=== PATIENT | female | born 1970 | race Caucasian/White ===

== ENCOUNTER 2016-10-19 20:01 | Emergency (ER) | payer BC ==
[~2016-10-19 20:01] MED LIST: Acetaminophen/HYDROcodone 325-5 MG Tab PO ONE; Ondansetron 4 MG Tab.DIS PO ONE
[2016-10-19] MEDS ORDERED: Ondansetron 4 MG/2 ML SDV IVPUSH STA ×2 (20:14→21:33)
[2016-10-19] MEDS ORDERED: LORazepam 2 MG/ML Syringe IVPUSH ONE (20:14)
[2016-10-19] MEDS ORDERED: Morphine 4 MG/ML Syringe IVPUSH ONE ×2 (20:14→21:33)
--- NOTE | 2016-10-19 20:31 | EDM.PDOC ---
ED HPI GENERAL MEDICAL PROBLEM - General Chief Complaint: General Stated Complaint: BACK PAIN Time Seen by Provider: 10/19/16 20:04 Source of Information: Reports: Patient History Limitations: Reports: No limitations - History of Present Illness INITIAL COMMENTS - FREE TEXT/NARRATIVE: This patient is a 46 year old female that presents to the ER. Patient reports that she just got off work and was driving at 6pm when she started having tightness between her shoulder blades. Patient reports that her tightness began to radiate to the neck, bilateral upper arms, and into her chest. Patient reports she developed nausea and shortness of breath and dizziness with it. Patient reports the tightness waxes and wanes, never goes away. She reports at the max, the tightness is a level of 7, now is level of 5. The patient reports she stopped smoking about 14 years ago. She reports that she has brothers and father who has heart problems. She is a diabetic. Patient looks anxious.Patient denies headache, v, d, f, abd pain, urinary/bowel changes, rash, airway closure , tongue swelling. Onset: today Onset Date: 10/19/16 Onset Time: 18:00 Location: Reports: neck, chest, back, upper extremity, left, upper extremity, right Quality: Reports: Other ("Tight") Severity: moderate Improves with: Reports: None Worsens with: Reports: None Associated Symptoms: Reports: chest pain, nausea/vomiting, shortness of breath. Denies: confusion, cough, cough w sputum, diaphoresis, fever/chills, headaches , loss of appetite, malaise, rash, seizure, syncope, weakness - Related Data Allergies Allergy/AdvReac Type Severity Reaction Status Date / Time red dye Allergy Intermediate Hives Verified 10/19/16 20:19 Penicillins Allergy Cannot Verified 10/19/16 20:19 Remember Home Meds: Home Meds . [No Known Home Meds] 08/10/15 [History] Past Medical History Endocrine/Metabolic History: Reports: Diabetes, type II Social & Family History - Family History Cardiac: Reports: CAD, Hypertension Endocrine/Metabolic: Reports: Diabetes, type II - Tobacco Use Smoking Status *Q: Never Smoker - Recreational Drug Use Recreational Drug Use: No ED ROS GENERAL - Review of Systems Review Of Systems: See Below Constitutional: Reports: no symptoms HEENT: Reports: No symptoms Respiratory: Reports: Shortness of Breath Cardiovascular: Reports: Chest pain, Lightheadedness Endocrine: Reports: no symptoms GI/Abdominal: Reports: Nausea : Reports: no symptoms Musculoskeletal: Reports: neck pain, arm pain (bilateral), back pain Skin: Reports: no symptoms Neurological: Reports: Dizziness Psychiatric: Reports: No symptoms Hematologic/Lymphatic: Reports: no symptoms Immunologic: Reports: no symptoms ED EXAM, GENERAL - Physical Exam Exam: See Below Exam Limited By: No limitations General Appearance: alert, WD/WN, no apparent distress Eye Exam: bilateral eye: normal inspection, PERRL Ears: normal external exam, normal canal, hearing grossly normal, normal TMs Ear Exam: bilateral ear: auricle normal, canal normal, TM normal Nose: normal inspection, normal mucosa, no blood Throat/Mouth: Normal inspection, Normal lips, Normal teeth, Normal gums, Normal oropharynx, Normal voice, No airway compromise Head: atraumatic, normocephalic Neck: normal inspection, supple, non-tender, full range of motion Respiratory/Chest: no respiratory distress, lungs clear, normal breath sounds, no accessory muscle use Cardiovascular: normal peripheral pulses, regular rate, rhythm, no edema, no gallop, no JVD, no murmur, no rub Peripheral Pulses: 2+: radial (L), radial (R), posterior tibial (L), posterior tibial (R), dorsalis pedis (L), dorsalis pedis (R) GI/Abdominal: soft, non tender Back Exam: normal inspection, full range of motion. No: CVA tenderness (L), CVA tenderness (R), decreased range of motion, muscle spasm, paraspinal tenderness, vertebral tenderness Extremities: normal inspection, normal range of motion, non-tender, no pedal edema, normal capillary refill Neurological: alert, oriented, CN II-XII intact, normal cognition, no motor/ sensory deficits Psychiatric: anxious Skin Exam: Warm, Dry, Intact, Normal color, No rash Lymphatic: no adenopathy EKG INTERPRETATION EKG Date: 10/19/16 Time: 20:13 Rhythm: NSR Rate (beats/min): 87 [place]: normal P-wave: present QRS: normal ST-T: normal QT: normal Comparison: NA - no prior EKG Course - Vital Signs Last Recorded V/S: Last Vital Signs Temp 97.9 F 10/19/16 20:05 Pulse 91 10/19/16 20:05 Resp 18 10/19/16 20:05 BP 132/76 10/19/16 20:05 Pulse Ox 97 10/19/16 20:05 - Orders/Labs/Meds Orders: Active Orders 24 hr Category Date Time Status Chest 2V [CR] Stat Exams 10/19/16 20:12 Taken Acetaminophen/HYDROcodone [Take Home: Acetaminophen/ Med 10/19/16 22:51 Once HYDROcod, 2 Tab Pack] 3 packet PO ONETIME ONE Ondansetron [Take Home: Ondansetron ODT 4 MG, 2 Tab Med 10/19/16 22:51 Once Pack] 3 packet PO ONETIME ONE Labs: Laboratory Tests 10/19/16 10/19/16 10/19/16 Range/Units 20:12 20:12 20:12 WBC 8.4 (5.0-10.0) 10^3/uL RBC 4.43 (4.00-5.50) 10^6/uL Hgb 13.5 (12.0-16.0) g/dL Hct 40.5 (37.0-47.0) % MCV 91.4 (82.0-94.0) fL MCH 30.5 (27.0-32.0) pg MCHC 33.3 (33.0-38.0) g/dL RDW Coeff of [place] 12.9 (11.0-15.0) % Plt Count 213 (150-400) 10^3/uL Neut % (Auto) 58.4 (35-85) % Lymph % (Auto) 33.4 (10-55) % [place] % (Auto) 6.7 (0-16) % Eos % (Auto) 1.3 (0-5) % Baso % (Auto) 0.2 (0-3) % Neut # (Auto) 4.92 (1.80-7.00) 10^3/uL Lymph # (Auto) 2.81 (1.00-4.80) 10^3/uL [place] # (Auto) 0.56 (0.00-0.80) 10^3/uL Eos # (Auto) 0.11 (0.00-0.45) 10^3/uL Baso # (Auto) 0.02 10^3/uL D-Dimer, Quantitative (0.00-0.50) Sodium 137 (136-145) mEq/L Potassium 3.7 (3.5-5.0) mEq/L Chloride 102 (98-106) mEq/L Carbon Dioxide 25 (21-32) mmol/L BUN 15 (7-18) mg/dL Creatinine 0.9 (0.6-1.0) mg/dL Est Cr Clr Drug Dosing TNP Estimated GFR (MDRD) > 60 (>=60) mL/min Glucose 200 H (75-99) mg/dL Calcium 8.4 (8.4-10.1) mg/dL Total Bilirubin 0.5 (0.0-1.0) mg/dL AST 18 (15-37) U/L ALT 31 (12-78) U/L Alkaline Phosphatase 88 (46-116) U/L Creatine Kinase 77 (21-215) U/L Troponin I < 0.017 (0.00-0.06) ng/mL C-Reactive Protein < 0.2 L (0.2-0.8) mg/dL Total Protein 7.3 (6.4-8.2) g/dL Albumin 3.7 (3.4-5.0) g/dL HCG, Qual Negative 10/19/16 10/19/16 Range/Units 20:18 22:10 WBC (5.0-10.0) 10^3/uL RBC (4.00-5.50) 10^6/uL Hgb (12.0-16.0) g/dL Hct (37.0-47.0) % MCV (82.0-94.0) fL MCH (27.0-32.0) pg MCHC (33.0-38.0) g/dL RDW Coeff of [place] (11.0-15.0) % Plt Count (150-400) 10^3/uL Neut % (Auto) (35-85) % Lymph % (Auto) (10-55) % [place] % (Auto) (0-16) % Eos % (Auto) (0-5) % Baso % (Auto) (0-3) % Neut # (Auto) (1.80-7.00) 10^3/uL Lymph # (Auto) (1.00-4.80) 10^3/uL [place] # (Auto) (0.00-0.80) 10^3/uL Eos # (Auto) (0.00-0.45) 10^3/uL Baso # (Auto) 10^3/uL D-Dimer, Quantitative 0.27 (0.00-0.50) Sodium (136-145) mEq/L Potassium (3.5-5.0) mEq/L Chloride (98-106) mEq/L Carbon Dioxide (21-32) mmol/L BUN (7-18) mg/dL Creatinine (0.6-1.0) mg/dL Est Cr Clr Drug Dosing Estimated GFR (MDRD) (>=60) mL/min Glucose (75-99) mg/dL Calcium (8.4-10.1) mg/dL Total Bilirubin (0.0-1.0) mg/dL AST (15-37) U/L ALT (12-78) U/L Alkaline Phosphatase (46-116) U/L Creatine Kinase (21-215) U/L Troponin I < 0.017 (0.00-0.06) ng/mL C-Reactive Protein (0.2-0.8) mg/dL Total Protein (6.4-8.2) g/dL Albumin (3.4-5.0) g/dL HCG, Qual Meds: Medications Discontinued Medications Generic Name Dose Route Start Last Admin Trade Name Freq PRN Reason Stop Dose Admin Cyclobenzaprine HCl 10 mg 10/19/16 21:34 10/19/16 21:48 Flexeril PO 10/19/16 21:35 10 mg ONETIME ONE Administration Lorazepam 1 mg 10/19/16 20:14 10/19/16 20:37 Ativan IVPUSH 10/19/16 20:15 1 mg ONETIME ONE Administration Morphine Sulfate 4 mg 10/19/16 20:14 10/19/16 20:37 Morphine IVPUSH 10/19/16 20:15 4 mg ONETIME ONE Administration Morphine Sulfate 4 mg 10/19/16 21:33 10/19/16 21:48 Morphine IVPUSH 10/19/16 21:34 4 mg ONETIME ONE Administration Ondansetron HCl 4 mg 10/19/16 20:14 10/19/16 20:37 Zofran IVPUSH 10/19/16 20:15 4 mg NOW STA Administration Ondansetron HCl 4 mg 10/19/16 21:33 10/19/16 21:48 Zofran IVPUSH 10/19/16 21:34 4 mg NOW STA Administration - Radiology Interpretation Free Text/Narrative:: CXR: No infiltrates, no cardiopulmonary edema, no cardiomegaly. - Re-Assessments/Exams Free Text/Narrative Re-Assessment/Exam: 10/19/16 21:24 Patient reports her pain and nausea are nearly completely resolved. I am awaiting a second troponin draw. So far all labs, ekg, and CXR are unremarkable. Departure - Departure Time of Disposition: 22:52 Disposition: Home, Self-Care 01 Condition: good Clinical Impression: Atypical chest pain Instructions: Nonspecific Chest Pain, [id number] Referrals: Provider,Unknown [Primary Care Provider] - Forms: ED Department Discharge Additional Instructions: Followup with your primary care provider Return to the ER for worsening of condition or any emergent concerns Increase fluids, Rest, Decrease stress. Zofran 4mg 1 pill as needed every 4-6 hours for nausea #6 take home [place] 5/325mg 1-2 pills every 4-6 hours as needed for pain #6 take home - My Orders Last 24 Hours: My Active Orders 10/19/16 20:12 Chest 2V [CR] Stat 10/19/16 22:51 Acetaminophen/HYDROcodone [Take Home: Acetaminophen/HYDROcod, 2 Tab Pack] 3 packet PO ONETIME ONE Ondansetron [Take Home: Ondansetron ODT 4 MG, 2 Tab Pack] 3 packet PO ONETIME ONE - Assessment/Plan Last 24 Hours: My Active Orders 10/19/16 20:12 Chest 2V [CR] Stat 10/19/16 22:51 Acetaminophen/HYDROcodone [Take Home: Acetaminophen/HYDROcod, 2 Tab Pack] 3 packet PO ONETIME ONE Ondansetron [Take Home: Ondansetron ODT 4 MG, 2 Tab Pack] 3 packet PO ONETIME ONE Plan: PLEASE SEE RN NOTE FOR PFSH.
[2016-10-19 20:45] LABS: CHLORIDE,CL 102 mEq/L (98-106); SODIUM,NA 137 mEq/L (136-145)
[2016-10-19] MEDS ORDERED: Cyclobenzaprine 10 MG Tab PO ONE (21:34)
[2016-10-19 22:12] VITALS: BP 132/76
[2016-10-19] MEDS ORDERED: Take Home: Acetaminophen/HYDROcodone 325-5 MG, 2 Tab Pack PO ONE (22:51)
[2016-10-19] MEDS ORDERED: Take Home: Ondansetron 4 MG Tab.DIS, 2 Tab Pack PO ONE (22:51)
== END 2016-10-19 23:05 | disposition home or self-care (01) ==
LOC: CC.ED 20:01
DX: R11.0 Nausea (principal); R07.89 Other chest pain; E11.9 Type 2 diabetes mellitus without complications; Z82.49 Family history of ischemic heart disease and other diseases of the circulatory system; Z88.0 Allergy status to penicillin; Z91.048 Other nonmedicinal substance allergy status
CPT/HCPCS: 36415; 71020; 80053; 82550; 84484; 84703; 85025; 85379; 86140; 93005; 96374; 96375; 99285; A9270; J2060; J2270; J2405; 96376

== ENCOUNTER 2018-08-16 19:00 | Emergency (ER) | payer BC ==
[2018-08-16 19:05] VITALS: BP 147/98
[2018-08-16] MEDS ORDERED: Alum Hydrox/Mag Hydrox/Simeth 30 ML, Lidocaine 2% 15 ML PO ONE ×2 (19:39)
[2018-08-16 19:40] LABS: CHLORIDE,CL 100 mEq/L (98-106); SODIUM,NA 137 mEq/L (136-145)
[2018-08-16] MEDS ORDERED: Ondansetron 4 MG/2 ML SDV IVPUSH ONE (19:59)
[2018-08-16] MEDS ORDERED: fentaNYL 100 MCG/2 ML SDV IVPUSH PRN (20:13)
--- NOTE | 2018-08-16 20:13 | EDM.PDOC ---
ED HPI GENERAL MEDICAL PROBLEM - General Chief Complaint: Abdominal Pain Stated Complaint: ABDOMINAL PAIN/BACK PAIN Time Seen by Provider: 08/16/18 19:30 Source of Information: Reports: Patient History Limitations: Reports: No Limitations - History of Present Illness INITIAL COMMENTS - FREE TEXT/NARRATIVE: Patient presents to ER with complaints of abdominal pain. States started about 0830 this am after eating toast and sausage. Has continued to have intermittent pain that starts in the upper quadrants and radiates diffusely throughout and to her back. She had pain similar to this prior to having her gallbladder surgery many years ago. She has had a BM and has been passing gas and belching through the day but it hasn't relieved the pain. She denies any nausea or vomiting. Has had intermittent chills. No blood in her stools. No previous history of PUD. Onset: Today, Sudden Duration: Hour(s):, Getting Worse Location: Reports: Abdomen Quality: Reports: Burning, Sharp Severity: Moderate Improves with: Reports: Rest Worsens with: Reports: None Associated Symptoms: Reports: Fever/Chills, Nausea/Vomiting. Denies: Chest Pain , Cough, Loss of Appetite, Shortness of Breath Back Pain Score (Numeric/FACES): 6 - Related Data Allergies Allergy/AdvReac Type Severity Reaction Status Date / Time red dye Allergy Intermediate Hives Verified 08/16/18 19:56 ibuprofen Allergy Swelling Verified 08/16/18 19:02 Penicillins Allergy Cannot Verified 08/16/18 19:56 Remember Home Meds: Home Meds . [No Known Home Meds] 08/10/15 [History] Past Medical History Endocrine/Metabolic History: Reports: Diabetes, Type II - Past Surgical History HEENT Surgical History: Reports: Adenoidectomy, Tonsillectomy GI Surgical History: Reports: Appendectomy, Cholecystectomy Female Surgical History: Reports: Section, Endometrial Ablation, Tubal Ligation Social & Family History - Family History Family Medical History: Noncontributory Cardiac: Reports: CAD, Hypertension Endocrine/Metabolic: Reports: Diabetes, type II - Tobacco Use Smoking Status *Q: Former Smoker Used Tobacco, but Quit: Yes Month/Year Tobacco Last Used: 2004 - Caffeine Use Caffeine Use: Reports: Soda - Recreational Drug Use Recreational Drug Use: No ED ROS GENERAL - Review of Systems Review Of Systems: See Below Constitutional: Reports: Chills, Malaise, Decreased Appetite. Denies: Fever, Weakness HEENT: Reports: No Symptoms Respiratory: Denies: Shortness of Breath, Cough Cardiovascular: Denies: Chest Pain, Edema, Lightheadedness Endocrine: Denies: Fatigue GI/Abdominal: Reports: Abdominal Pain, Nausea. Denies: Constipation, Diarrhea, Vomiting : Reports: No Symptoms Musculoskeletal: Reports: No Symptoms Skin: Reports: No Symptoms Neurological: Reports: No Symptoms ED EXAM, GI/ABD - Physical Exam Exam: See Below Exam Limited By: No Limitations General Appearance: Alert, WD/WN, No Apparent Distress Ears: Normal External Exam, Normal TMs Nose: Normal Inspection, Normal Mucosa, No Blood Throat/Mouth: Normal Inspection, Normal Oropharynx Head: Normocephalic Neck: Normal Inspection, Supple, Non-Tender Respiratory/Chest: No Respiratory Distress, Lungs Clear, Normal Breath Sounds Cardiovascular: Regular Rate, Rhythm GI/Abdominal Exam: Normal Bowel Sounds, Soft, Non-Tender Extremities: Normal Inspection, Normal Capillary Refill Neurological: Alert, Oriented Skin Exam: Warm, Dry Course - Vital Signs Last Recorded V/S: Last Vital Signs Temp 99.5 F 08/16/18 19:02 Pulse 89 08/16/18 19:02 Resp 18 08/16/18 19:02 BP 147/98 H 08/16/18 19:02 Pulse Ox 100 08/16/18 19:02 - Orders/Labs/Meds Orders: Active Orders 24 hr Category Date Time Status Abdomen 2V AP Flat Upright [CR] Stat Exams 08/16/18 19:10 Taken Abdomen Pelvis w Cont [CT] Routine Exams 08/16/18 Taken fentaNYL [Sublimaze] Med 08/16/18 20:13 Active 25 mcg IVPUSH Q6H PRN Medication Orders Fentanyl (Sublimaze) 25 mcg IVPUSH Q6H PRN PRN Reason: Pain Last Admin: 08/16/18 20:18 Dose: 25 mcg Labs: Laboratory Tests 08/16/18 08/16/18 08/16/18 Range/Units 19:15 19:20 19:20 WBC 9.7 (5.0-10.0) 10^3/uL RBC 4.92 (4.00-5.50) 10^6/uL Hgb 14.6 (12.0-16.0) g/dL Hct 44.0 (37.0-47.0) % MCV 89.4 (82.0-94.0) fL MCH 29.7 (27.0-32.0) pg MCHC 33.2 (33.0-38.0) g/dL RDW Coeff of Kaylyn 12.8 (11.0-15.0) % Plt Count 222 (150-400) 10^3/uL Neut % (Auto) 56.8 (35-85) % Lymph % (Auto) 35.6 (10-55) % [place] % (Auto) 6.1 (0-16) % Eos % (Auto) 1.3 (0-5) % Baso % (Auto) 0.2 (0-3) % Neut # (Auto) 5.48 (1.80-7.00) 10^3/uL Lymph # (Auto) 3.44 (1.00-4.80) 10^3/uL [place] # (Auto) 0.59 (0.00-0.80) 10^3/uL Eos # (Auto) 0.13 (0.00-0.45) 10^3/uL Baso # (Auto) 0.02 10^3/uL Sodium 137 (136-145) mEq/L Potassium 4.0 (3.5-5.0) mEq/L Chloride 100 (98-106) mEq/L Carbon Dioxide 25 (21-32) mmol/L BUN 14 (7-18) mg/dL Creatinine 0.7 (0.6-1.0) mg/dL Est Cr Clr Drug Dosing 72.13 mL/min Estimated GFR (MDRD) > 60 (>=60) mL/min Glucose 199 H (75-99) mg/dL Calcium 8.8 (8.4-10.1) mg/dL Total Bilirubin 0.4 (0.0-1.0) mg/dL AST 15 (15-37) U/L ALT 34 (12-78) U/L Alkaline Phosphatase 104 (46-116) U/L C-Reactive Protein < 0.2 L (0.2-0.8) mg/dL Total Protein 7.5 (6.4-8.2) g/dL Albumin 3.6 (3.4-5.0) g/dL Amylase 57 (25-115) U/L HCG, Qual Urine Color Yellow (YELLOW) Urine Appearance Clear (CLEAR) Urine pH 6.0 (4.5-8.0) Ur Specific [place] 1.020 (1.003-1.020) Urine Protein Negative (NEGATIVE) mg/dL Urine Glucose (UA) 100 H (NEGATIVE) mg/dL Urine Ketones Negative (NEGATIVE) mg/dL Urine Occult Blood Trace-intact H (NEGATIVE) Urine Nitrite Negative (NEGATIVE) Urine Bilirubin Negative (NEGATIVE) Urine Urobilinogen 0.2 (0.2-1.0) EU/dL Ur Leukocyte Esterase Negative (NEGATIVE) Urine RBC Not seen (0-5) /HPF Urine WBC Not seen (0-5) /HPF Ur Epithelial Cells Few H (NOT SEEN) /HPF 08/16/18 Range/Units 19:20 WBC (5.0-10.0) 10^3/uL RBC (4.00-5.50) 10^6/uL Hgb (12.0-16.0) g/dL Hct (37.0-47.0) % MCV (82.0-94.0) fL MCH (27.0-32.0) pg MCHC (33.0-38.0) g/dL RDW Coeff of Kaylyn (11.0-15.0) % Plt Count (150-400) 10^3/uL Neut % (Auto) (35-85) % Lymph % (Auto) (10-55) % [place] % (Auto) (0-16) % Eos % (Auto) (0-5) % Baso % (Auto) (0-3) % Neut # (Auto) (1.80-7.00) 10^3/uL Lymph # (Auto) (1.00-4.80) 10^3/uL [place] # (Auto) (0.00-0.80) 10^3/uL Eos # (Auto) (0.00-0.45) 10^3/uL Baso # (Auto) 10^3/uL Sodium (136-145) mEq/L Potassium (3.5-5.0) mEq/L Chloride (98-106) mEq/L Carbon Dioxide (21-32) mmol/L BUN (7-18) mg/dL Creatinine (0.6-1.0) mg/dL Est Cr Clr Drug Dosing mL/min Estimated GFR (MDRD) (>=60) mL/min Glucose (75-99) mg/dL Calcium (8.4-10.1) mg/dL Total Bilirubin (0.0-1.0) mg/dL AST (15-37) U/L ALT (12-78) U/L Alkaline Phosphatase (46-116) U/L C-Reactive Protein (0.2-0.8) mg/dL Total Protein (6.4-8.2) g/dL Albumin (3.4-5.0) g/dL Amylase (25-115) U/L HCG, Qual Negative Urine Color (YELLOW) Urine Appearance (CLEAR) Urine pH (4.5-8.0) Ur Specific [place] (1.003-1.020) Urine Protein (NEGATIVE) mg/dL Urine Glucose (UA) (NEGATIVE) mg/dL Urine Ketones (NEGATIVE) mg/dL Urine Occult Blood (NEGATIVE) Urine Nitrite (NEGATIVE) Urine Bilirubin (NEGATIVE) Urine Urobilinogen (0.2-1.0) EU/dL Ur Leukocyte Esterase (NEGATIVE) Urine RBC (0-5) /HPF Urine WBC (0-5) /HPF Ur Epithelial Cells (NOT SEEN) /HPF Meds: Medications Generic Name Dose Route Start Last Admin Trade Name Freq PRN Reason Stop Dose Admin Fentanyl 25 mcg 08/16/18 20:13 08/16/18 20:18 Sublimaze IVPUSH 25 mcg Q6H PRN Administration Pain Discontinued Medications Generic Name Dose Route Start Last Admin Trade Name Freq PRN Reason Stop Dose Admin Hydrocodone Bitart/Acetaminophen 2 packet 08/16/18 20:58 Take Home: Acetaminophen/Hydrocod, 2 Tab Pack PO 08/16/18 20:59 ONETIME ONE Al Hydroxide/Mg Hydroxide 30 0 ml 08/16/18 19:39 08/16/18 19:49 ml/ Lidocaine HCl 15 ml PO 08/16/18 19:40 30 ml ONETIME ONE Administration Ondansetron HCl 4 mg 08/16/18 19:59 08/16/18 20:05 Zofran IVPUSH 08/16/18 20:00 4 mg ONETIME ONE Administration - Re-Assessments/Exams Free Text/Narrative Re-Assessment/Exam: 08/16/18 Given GI cocktail, no relief of the pain. Did get nauseated as a result. Zofran IV given 2004- Labs are all negative. Flat and upright does show stool in the right colon, no obstruction. CT scan of the abdomen with IV contrast done. 08/16/18 21:00 CT scan shows probable fibroids in the uterus, ovarian cyst. No other acute findings. Results discussed with patient. Departure - Departure Time of Disposition: 21:01 Disposition: Home, Self-Care 01 Condition: Fair Clinical Impression: Abdominal pain, Ovarian cyst - Discharge Information *PRESCRIPTION DRUG MONITORING PROGRAM REVIEWED*: No *COPY OF PRESCRIPTION DRUG MONITORING REPORT IN PATIENT SEBAS: No Forms: ED Department Discharge Additional Instructions: 1. Push fluids 2. Obtain pelvic ultrasound 3. Hydrocodone 1-2 tabs every 6 hours as needed for pain 4. Follow up with [facility] for results/persisting pain. - My Orders Last 24 Hours: My Active Orders 08/16/18 Abdomen Pelvis w Cont [CT] Routine 08/16/18 19:10 Abdomen 2V AP Flat Upright [CR] Stat 08/16/18 20:13 fentaNYL [Sublimaze] 25 mcg IVPUSH Q6H PRN - Assessment/Plan Last 24 Hours: My Active Orders 08/16/18 Abdomen Pelvis w Cont [CT] Routine 08/16/18 19:10 Abdomen 2V AP Flat Upright [CR] Stat 08/16/18 20:13 fentaNYL [Sublimaze] 25 mcg IVPUSH Q6H PRN
[2018-08-16] MEDS ORDERED: Take Home: Acetaminophen/HYDROcodone 325-5 MG, 2 Tab Pack PO ONE (20:58)
== END 2018-08-16 21:13 | disposition home or self-care (01) ==
LOC: CC.ED 19:00
DX: N83.209 Unspecified ovarian cyst, unspecified side (principal); E11.9 Type 2 diabetes mellitus without complications; Z87.891 Personal history of nicotine dependence; Z88.8 Allergy status to other drugs, medicaments and biological substances; Z88.0 Allergy status to penicillin
CPT/HCPCS: 36415; 74019; 74177; 80053; 81001; 82150; 84703; 85025; 86140; 96374; 96375; 99284; A9270-GY; J2405; J3010; Q9967

== ENCOUNTER 2019-07-12 22:34 | Inpatient (IN) | payer BC ==
[2019-07-12] MEDS ORDERED: fentaNYL 100 MCG/2 ML SDV IM ONE (22:56)
[2019-07-12] MEDS ORDERED: fentaNYL 100 MCG/2 ML SDV IVPUSH ONE ×2 (23:00→23:33)
--- NOTE | 2019-07-12 23:01 | EDM.PDOC ---
ED HPI GENERAL MEDICAL PROBLEM - General Chief Complaint: Abdominal Pain Stated Complaint: abdominal pain Time Seen by Provider: 07/12/19 22:45 Source of Information: Reports: Patient History Limitations: Reports: No Limitations - History of Present Illness INITIAL COMMENTS - FREE TEXT/NARRATIVE: pt presents with sudden onset of severe abdominal pain that goes across her entire abdomen and radiates into her back. She ate supper normally and felt well then about 7 pm she started having abdominal pain with pressure and vomited about 9 times in the next 3 hours. She states when she vomits it will take away some of the pressure and then it builds up and she would vomit again. No diarrhea or fever with it. No one else in house became ill and they all ate same food. She has had cholecystectomy and appendectomy in the past. Has not had exposure to ill in the past 24 hours. She continues to state that it feels like sharp contractions that will shoot into her low to mid back. Onset: Sudden Onset Date: 07/12/19 Onset Time: 19:00 Location: Reports: Abdomen, Generalized Quality: Reports: Sharp, Stabbing Severity: Severe Associated Symptoms: Reports: Nausea/Vomiting. Denies: Fever/Chills Abdominal Pain Score (Numeric/FACES): 8 - Related Data Allergies Allergy/AdvReac Type Severity Reaction Status Date / Time red dye Allergy Intermediate Hives Verified 07/12/19 22:35 ibuprofen Allergy Swelling Verified 07/12/19 22:35 Penicillins Allergy Cannot Verified 07/12/19 22:35 Remember Home Meds: Home Meds . [No Known Home Meds] 08/10/15 [History] Past Medical History Endocrine/Metabolic History: Reports: Diabetes, Type II - Past Surgical History HEENT Surgical History: Reports: Adenoidectomy, Tonsillectomy GI Surgical History: Reports: Appendectomy, Cholecystectomy Female Surgical History: Reports: Section, Endometrial Ablation, Tubal Ligation Social & Family History - Family History Family Medical History: Noncontributory Cardiac: Reports: CAD, Hypertension Endocrine/Metabolic: Reports: Diabetes, type II - Caffeine Use Caffeine Use: Reports: Soda ED ROS GENERAL - Review of Systems Review Of Systems: See Below Constitutional: Denies: Fever, Chills HEENT: Reports: No Symptoms Respiratory: Reports: No Symptoms Cardiovascular: Reports: No Symptoms GI/Abdominal: Reports: Abdominal Pain, Nausea, Vomiting. Denies: Constipation, Diarrhea, Melena : Reports: No Symptoms Musculoskeletal: Reports: Back Pain Skin: Reports: No Symptoms Neurological: Reports: No Symptoms ED EXAM, GI/ABD - Physical Exam Exam: See Below Exam Limited By: No Limitations General Appearance: Alert, WD/WN, Moderate Distress Ears: Normal External Exam, Normal Canal, Normal TMs Head: Atraumatic, Normocephalic Neck: Normal Inspection, Supple, Non-Tender, Full Range of Motion Respiratory/Chest: No Respiratory Distress, Lungs Clear, Normal Breath Sounds Cardiovascular: Regular Rate, Rhythm, No Edema GI/Abdominal Exam: Soft, Other (bowel sounds are hypoactive to none. Abdomen is tender across the entire abdomen with light palpation.) Back Exam: Normal Inspection, Other (back radiates into the mid back.) Extremities: No Pedal Edema Neurological: Alert, Oriented Skin Exam: Warm, Dry, Intact Course - Vital Signs Last Recorded V/S: Last Vital Signs Temp 98.8 F 07/12/19 22:35 Pulse 97 07/12/19 22:35 Resp 16 07/12/19 22:35 BP 164/102 H 07/12/19 22:35 Pulse Ox 100 07/12/19 22:35 - Orders/Labs/Meds Orders: Active Orders 24 hr Category Date Time Status Abdomen 2V AP Flat Upright [CR] Urgent Exams 07/12/19 22:51 Ordered C-REACTIVE PROTEIN [CHEM] Stat Lab 07/12/19 22:40 Received COMPREHENSIVE METABOLIC PN,CMP [CHEM] Stat Lab 07/12/19 22:40 Received UA W/MICROSCOPIC [URIN] Stat Lab 07/12/19 22:40 Results Labs: Laboratory Tests 07/12/19 07/12/19 Range/Units 22:40 22:40 WBC 19.6 H (5.0-10.0) 10^3/uL RBC 4.92 (4.00-5.50) 10^6/uL Hgb 15.1 (12.0-16.0) g/dL Hct 45.1 (37.0-47.0) % MCV 91.7 (82.0-94.0) fL MCH 30.7 (27.0-32.0) pg MCHC 33.5 (33.0-38.0) g/dL RDW Coeff of [place] 13.4 (11.0-15.0) % Plt Count 274 (150-400) 10^3/uL Neut % (Auto) 85.8 H (35-85) % Lymph % (Auto) 7.8 L (10-55) % [place] % (Auto) 5.9 (0-16) % Eos % (Auto) 0.4 (0-5) % Baso % (Auto) 0.1 (0-3) % Neut # (Auto) 16.84 H (1.80-7.00) 10^3/uL Lymph # (Auto) 1.53 (1.00-4.80) 10^3/uL [place] # (Auto) 1.16 H (0.00-0.80) 10^3/uL Eos # (Auto) 0.08 (0.00-0.45) 10^3/uL Baso # (Auto) 0.02 10^3/uL Urine Color Yellow (YELLOW) Urine Appearance Clear (CLEAR) Urine pH 6.0 (4.5-8.0) Ur Specific [place] 1.025 H (1.003-1.020) Urine Protein 100 H (NEGATIVE) mg/dL Urine Glucose (UA) Negative (NEGATIVE) mg/dL Urine Ketones Trace H (NEGATIVE) mg/dL Urine Occult Blood Negative (NEGATIVE) Urine Nitrite Negative (NEGATIVE) Urine Bilirubin Negative (NEGATIVE) Urine Urobilinogen 0.2 (0.2-1.0) EU/dL Ur Leukocyte Esterase Negative (NEGATIVE) - Re-Assessments/Exams Free Text/Narrative Re-Assessment/Exam: 07/12/19 23:[address] with radiologist and he states that there is bowel distention but technically it doesn't meet the criteria for bowel obstruction. He states that she has enterocolitis. Will admit and make NPO with pain meds and pantoprazole. Will insert NG if vomiting continues. Discussed with pt and and the both agree with admit. Departure - Departure Time of Disposition: 23:52 Disposition: Admitted As Inpatient 67 Condition: Fair Clinical Impression: Enterocolitis Vomiting Qualifiers: Vomiting type: unspecified Vomiting Intractability: intractable Nausea presence : with nausea Qualified Code(s): R11.2 - Nausea with vomiting, unspecified - Discharge Information *PRESCRIPTION DRUG MONITORING PROGRAM REVIEWED*: Not Applicable *COPY OF PRESCRIPTION DRUG MONITORING REPORT IN PATIENT SEBSA: Not Applicable Sepsis Event Note - Evaluation Sepsis Screening Result: No Definite Risk - Focused Exam Vital Signs: Vital Signs Temp Pulse Resp BP Pulse Ox 07/12/19 22:35 98.8 F 97 16 164/102 H 100 Date Exam was Performed: 07/12/19 Time Exam was Performed: 22:55 - Problem List & Annotations (1) Enterocolitis SNOMED Code(s): 03413723 Code(s): K52.9 - NONINFECTIVE GASTROENTERITIS AND COLITIS, UNSPECIFIED Status: Acute Priority: High Current Visit: Yes (2) Abdominal pain SNOMED Code(s): 47143941 Code(s): R10.9 - UNSPECIFIED ABDOMINAL PAIN Status: Acute Priority: High Current Visit: No (3) Vomiting SNOMED Code(s): 829629464 Code(s): R11.10 - VOMITING, UNSPECIFIED Status: Acute Priority: Medium Current Visit: Yes Qualifiers: Vomiting type: unspecified Vomiting Intractability: intractable Nausea presence: with nausea Qualified Code(s): R11.2 - Nausea with vomiting, unspecified - Problem List Review Problem List Initiated/Reviewed/Updated: Yes - My Orders Last 24 Hours: My Active Orders 07/12/19 22:40 C-REACTIVE PROTEIN [CHEM] Stat COMPREHENSIVE METABOLIC PN,CMP [CHEM] Stat UA W/MICROSCOPIC [URIN] Stat 07/12/19 22:51 Abdomen 2V AP Flat Upright [CR] Urgent - Assessment/Plan Admission H&P: Please use this note as an admission H&P Last 24 Hours: My Active Orders 07/12/19 22:40 C-REACTIVE PROTEIN [CHEM] Stat COMPREHENSIVE METABOLIC PN,CMP [CHEM] Stat UA W/MICROSCOPIC [URIN] Stat 07/12/19 22:51 Abdomen 2V AP Flat Upright [CR] Urgent
[2019-07-12 23:02] LABS: CHLORIDE,CL 101 mEq/L (98-106); SODIUM,NA 138 mEq/L (136-145)
[2019-07-12] MEDS ORDERED: Iopamidol 755 Mg/ML 100 ML Bottle IVPUSH ONE (23:11)
[2019-07-13] MEDS: Lactated Ringers 1,000 ML IV SCH ×3 (00:20→15:56)
[2019-07-13] MEDS: Pantoprazole 40 MG Vial IVPUSH SCH ×3 (00:24→23:44)
[2019-07-13] MEDS: Ondansetron 4 MG/2 ML SDV IV PRN ×2 (00:27→04:33)
[2019-07-13] MEDS: HYDROmorphone 1 MG/ML Syringe IVPUSH PRN ×5 (00:30→11:52)
[2019-07-13] MEDS: Enoxaparin 40 MG/0.4 ML Syringe SUBCUT SCH ×2 (00:33→21:14)
[2019-07-13] MEDS: Levofloxacin/Dextrose 5%-Water 500 MG in Premix Bag 1 BAG IV SCH ×2 (00:59→23:44)
[2019-07-13 07:25] LABS: CHLORIDE,CL 105 mEq/L (98-106); SODIUM,NA 140 mEq/L (136-145)
--- NOTE | 2019-07-13 09:15 | PCM.PN ---
- General Info Date of Service: 07/13/19 Admission Dx/Problem (Free Text): Enterocolitis Functional Status: Denies: Pain Controlled, Tolerating Diet, Ambulating - Review of Systems General: Reports: Fatigue, Malaise HEENT: Reports: No Symptoms Pulmonary: Denies: Shortness of Breath, Cough Cardiovascular: Denies: Chest Pain, Edema, Lightheadedness Gastrointestinal: Reports: Abdominal Pain. Denies: Flatus, Nausea, Vomiting Genitourinary: Reports: No Symptoms Musculoskeletal: Reports: No Symptoms Skin: Reports: No Symptoms Neurological: Reports: Headache - Patient Data Vitals - Most Recent: Last Vital Signs Temp 98 F 07/13/19 08:00 Pulse 80 07/13/19 08:00 Resp 20 07/13/19 08:00 BP 116/78 07/13/19 08:00 Pulse Ox 100 07/13/19 08:00 Weight - Most Recent: 142 lb 14.4 oz I&O - Last 24 Hours: Intake & Output 07/12/19 07/13/19 07/13/19 22:59 06:59 14:59 Intake Total 1000 Output Total 450 Balance -450 1000 Lab Results Last 24 Hours: Laboratory Results - last 24 hr 07/12/19 07/12/19 07/12/19 Range/Units 22:40 22:40 22:40 WBC 19.6 H (5.0-10.0) 10^3/uL RBC 4.92 (4.00-5.50) 10^6/uL Hgb 15.1 (12.0-16.0) g/dL Hct 45.1 (37.0-47.0) % MCV 91.7 (82.0-94.0) fL MCH 30.7 (27.0-32.0) pg MCHC 33.5 (33.0-38.0) g/dL RDW Coeff of Kaylyn 13.4 (11.0-15.0) % Plt Count 274 (150-400) 10^3/uL Neut % (Auto) 85.8 H (35-85) % Lymph % (Auto) 7.8 L (10-55) % [place] % (Auto) 5.9 (0-16) % Eos % (Auto) 0.4 (0-5) % Baso % (Auto) 0.1 (0-3) % Neut # (Auto) 16.84 H (1.80-7.00) 10^3/uL Lymph # (Auto) 1.53 (1.00-4.80) 10^3/uL [place] # (Auto) 1.16 H (0.00-0.80) 10^3/uL Eos # (Auto) 0.08 (0.00-0.45) 10^3/uL Baso # (Auto) 0.02 10^3/uL Sodium 138 (136-145) mEq/L Potassium 3.9 (3.5-5.0) mEq/L Chloride 101 (98-106) mEq/L Carbon Dioxide 26 (21-32) mmol/L BUN 12 (7-18) mg/dL Creatinine 0.9 (0.6-1.0) mg/dL Est Cr Clr Drug Dosing 55.51 mL/min Estimated GFR (MDRD) > 60 (>=60) mL/min Glucose 186 H (75-99) mg/dL Calcium 8.7 (8.4-10.1) mg/dL Total Bilirubin 0.5 (0.0-1.0) mg/dL AST 13 L (15-37) U/L ALT 21 (12-78) U/L Alkaline Phosphatase 86 (46-116) U/L C-Reactive Protein < 0.2 L (0.2-0.8) mg/dL Total Protein 7.5 (6.4-8.2) g/dL Albumin 3.9 (3.4-5.0) g/dL Urine Color Yellow (YELLOW) Urine Appearance Clear (CLEAR) Urine pH 6.0 (4.5-8.0) Ur Specific [place] 1.025 H (1.003-1.020) Urine Protein 100 H (NEGATIVE) mg/dL Urine Glucose (UA) Negative (NEGATIVE) mg/dL Urine Ketones Trace H (NEGATIVE) mg/dL Urine Occult Blood Negative (NEGATIVE) Urine Nitrite Negative (NEGATIVE) Urine Bilirubin Negative (NEGATIVE) Urine Urobilinogen 0.2 (0.2-1.0) EU/dL Ur Leukocyte Esterase Negative (NEGATIVE) Urine RBC Not seen (0-5) /HPF Urine WBC Not seen (0-5) /HPF Ur Epithelial Cells Moderate H (NOT SEEN) /HPF Urine Bacteria Few H (NOT SEEN) /HPF Urine Mucus Many H (NOT SEEN) /HPF 07/13/19 07/13/19 Range/Units 06:55 06:55 WBC 8.2 (5.0-10.0) 10^3/uL RBC 4.28 (4.00-5.50) 10^6/uL Hgb 13.0 (12.0-16.0) g/dL Hct 39.3 (37.0-47.0) % MCV 91.8 (82.0-94.0) fL MCH 30.4 (27.0-32.0) pg MCHC 33.1 (33.0-38.0) g/dL RDW Coeff of [place] 13.0 (11.0-15.0) % Plt Count 235 (150-400) 10^3/uL Neut % (Auto) 59.4 (35-85) % Lymph % (Auto) 31.8 (10-55) % [place] % (Auto) 7.2 (0-16) % Eos % (Auto) 1.5 (0-5) % Baso % (Auto) 0.1 (0-3) % Neut # (Auto) 4.85 (1.80-7.00) 10^3/uL Lymph # (Auto) 2.60 (1.00-4.80) 10^3/uL [place] # (Auto) 0.59 (0.00-0.80) 10^3/uL Eos # (Auto) 0.12 (0.00-0.45) 10^3/uL Baso # (Auto) 0.01 10^3/uL Sodium 140 (136-145) mEq/L Potassium 3.9 (3.5-5.0) mEq/L Chloride 105 (98-106) mEq/L Carbon Dioxide 27 (21-32) mmol/L BUN 11 (7-18) mg/dL Creatinine 0.8 (0.6-1.0) mg/dL Est Cr Clr Drug Dosing 62.44 mL/min Estimated GFR (MDRD) > 60 (>=60) mL/min Glucose 121 H D (75-99) mg/dL Calcium 8.2 L (8.4-10.1) mg/dL Total Bilirubin 0.8 (0.0-1.0) mg/dL AST 18 (15-37) U/L ALT 21 (12-78) U/L Alkaline Phosphatase 63 (46-116) U/L C-Reactive Protein (0.2-0.8) mg/dL Total Protein 6.2 L (6.4-8.2) g/dL Albumin 3.1 L (3.4-5.0) g/dL Urine Color (YELLOW) Urine Appearance (CLEAR) Urine pH (4.5-8.0) Ur Specific [place] (1.003-1.020) Urine Protein (NEGATIVE) mg/dL Urine Glucose (UA) (NEGATIVE) mg/dL Urine Ketones (NEGATIVE) mg/dL Urine Occult Blood (NEGATIVE) Urine Nitrite (NEGATIVE) Urine Bilirubin (NEGATIVE) Urine Urobilinogen (0.2-1.0) EU/dL Ur Leukocyte Esterase (NEGATIVE) Urine RBC (0-5) /HPF Urine WBC (0-5) /HPF Ur Epithelial Cells (NOT SEEN) /HPF Urine Bacteria (NOT SEEN) /HPF Urine Mucus (NOT SEEN) /HPF Med Orders - Current: Current Medications Acetaminophen (Tylenol) 650 mg PO Q6H PRN PRN Reason: Abdominal Pain Enoxaparin Sodium (Lovenox) 40 mg SUBCUT DAILY@2200 [facility] Last Admin: 07/13/19 00:33 Dose: Not Given Hydromorphone HCl (Dilaudid) 0.25 mg IVPUSH Q2H PRN PRN Reason: Pain (severe 7-10) Last Admin: 07/13/19 07:39 Dose: 0.25 mg Lactated Ringer's (Ringers, Lactated) 1,000 mls @ 125 mls/hr IV ASDIRECTED [facility] Last Admin: 07/13/19 08:31 Dose: 125 mls/hr Levofloxacin/Dextrose 500 mg/ (Premix) 100 mls @ 100 mls/hr IV Q24H [facility] Last Admin: 07/13/19 00:59 Dose: 100 mls/hr Ondansetron HCl (Zofran) 8 mg IV Q4H PRN PRN Reason: Nausea/Vomiting Last Admin: 07/13/19 04:33 Dose: 8 mg Pantoprazole Sodium (Protonix Iv) 40 mg IVPUSH Q12H [facility] Last Admin: 07/13/19 00:24 Dose: 40 mg Discontinued Medications Fentanyl (Sublimaze) 25 mcg IM ONETIME ONE Stop: 07/12/19 22:57 Last Admin: 07/12/19 23:04 Dose: Not Given Fentanyl (Sublimaze) 25 mcg IVPUSH ONETIME ONE Stop: 07/12/19 23:01 Last Admin: 07/12/19 23:04 Dose: 25 mcg Fentanyl (Sublimaze) 50 mcg IVPUSH ONETIME ONE Stop: 07/12/19 23:34 Last Admin: 07/12/19 23:37 Dose: 50 mcg Iopamidol (Isovue-370 (76%)) 100 ml IVPUSH ONETIME ONE Stop: 07/12/19 23:12 Last Admin: 07/12/19 23:27 Dose: 100 ml - Exam General: Alert, Oriented, Mild Distress HEENT: Mucous Membr. Moist/[place] Neck: Supple Lungs: Clear to Auscultation, Normal Respiratory Effort Cardiovascular: Regular Rate, Regular Rhythm GI/Abdominal Exam: Normal Bowel Sounds, Soft, Tender (diffusely throughout) Extremities: Normal Inspection, No Pedal Edema Skin: Warm, Dry Neurological: No New Focal Deficit Sepsis Event Note - Evaluation Sepsis Screening Result: No Definite Risk - Focused Exam Vital Signs: Vital Signs Temp Pulse Resp BP BP Pulse Ox 07/13/19 08:00 98 F 80 20 116/78 100 07/13/19 04:00 96.7 F 85 16 122/80 99 07/12/19 23:55 97.9 F 92 16 151/93 H 100 07/12/19 22:57 142/89 H 07/12/19 22:35 98.8 F 97 16 164/102 H 100 Date Exam was Performed: 07/13/19 Time Exam was Performed: 09:09 - Problem List & Annotations (1) Enterocolitis SNOMED Code(s): 20562046 Code(s): K52.9 - NONINFECTIVE GASTROENTERITIS AND COLITIS, UNSPECIFIED Status: Acute Priority: High Current Visit: Yes - Problem List Review Problem List Initiated/Reviewed/Updated: Yes - My Orders Last 24 Hours: My Active Orders 07/13/19 08:34 Acetaminophen [Tylenol] 650 mg PO Q6H PRN 07/13/19 Lunch Clear Liquid Diet [DIET] - Assessment Assessment:: Enterocolitis - Plan Plan:: Patient is somewhat improved this am. Continues to have abdominal pain, better controlled with Dilaudid. Does feel "rumbling in abdomen" but not passing any flatus. No nausea or further vomiting through night. Abdomen is soft, bowel sounds are active, diffusely tender throughout. Labs are better this am, WBC down to 8.2, electrolytes are normal. Tolerating ice chips. Patient advised to ambulate as able today, be cautious with narcotics due to slowing bowel motility. Advance diet to clear liquids and see how she does. Repeat labs in am.
[2019-07-13] MEDS: Acetaminophen 325 MG Tab PO PRN ×2 (09:55→15:55)
[2019-07-14] MEDS: Lactated Ringers 1,000 ML IV SCH (00:11)
[2019-07-14] MEDS: Acetaminophen 325 MG Tab PO PRN (06:21)
[2019-07-14 07:09] LABS: CHLORIDE,CL 104 mEq/L (98-106); SODIUM,NA 139 mEq/L (136-145)
[2019-07-14] MEDS: Pantoprazole 40 MG Vial IVPUSH SCH (11:24)
[2019-07-14 11:31] VITALS: BP 124/70; PULSE 74
--- NOTE | 2019-07-14 21:13 | PCM.DCSUM1 ---
Discharge Summary - Hospital Course Free Text/Narrative:: Erich is a 48 year old who presented to ER with complaints of severe abdominal pain diffusely throughout. Noted the pain to radiate through to her back. Had felt well through the day, ate supper and had sudden onset of pain an hour or so later. [place] pressure and proceeded to have multiple episodes of vomiting. However, it did not relieve the pain. No diarrhea or fever. No other household members affected. Had eaten roast beef and mashed potatoes, no greasy or fried foods. History of cholecystectomy and appendectomy. Pain did not relieve so presented to ER. Initial WBC high at 19.6. CRP negative. Electrolytes normal. CT done with noted enterocolitis. Did not meet criteria for bowel obstruction. Started on IV fluids and Levaquin. Kept NPO. Given Zofran for nausea. Diagnosis: Stroke: No Modified [place] Scale: No Symptoms at All Modified [place] Scale Score: 0 - Discharge Data Discharge Date: 07/14/19 Discharge Disposition: Home, Self-Care 01 Condition: Good - Referral to Home Health Primary Care Physician: PCP None - Discharge Diagnosis/Problem(s) (1) Enterocolitis SNOMED Code(s): 84994318 ICD Code: K52.9 - NONINFECTIVE GASTROENTERITIS AND COLITIS, UNSPECIFIED Status: Acute Priority: High - Patient Summary/Data Complications: none Hospital Course: Patient doing well this am. Has gotten relief of her pain. Has now been passing gas and had several stools after much ambulation yesterday. Started on clear liquids yesterday, have advanced diet and tolerated well. WBC returned to normal yesterday and remains so today. CRP negative. Abdomen is soft, nontender now, much less guarding. Remains afebrile. Discharge home today, follow up with Zita Clarke in one week - Patient Instructions Diet: Usual Diet as Tolerated Activity: As Tolerated - Discharge Plan *PRESCRIPTION DRUG MONITORING PROGRAM REVIEWED*: Not Applicable *COPY OF PRESCRIPTION DRUG MONITORING REPORT IN PATIENT SEBAS: Not Applicable Home Medications: Home Meds . [No Known Home Meds] 08/10/15 [History] Patient Handouts: Colitis Forms: ED Department Discharge Referrals: Zita Clarke PA-C [Emergency Provider] - (Follow up with Zita Clarke in one week ) - Discharge Summary/Plan Comment DC Time >30 min.: No - General Info Date of Service: 07/14/19 Admission Dx/Problem (Free Text: Enterocolitis Functional Status: Reports: Pain Controlled, Tolerating Diet, Ambulating - Review of Systems General: Denies: Fever, Weakness, Fatigue HEENT: Reports: No Symptoms Pulmonary: Denies: Shortness of Breath, Cough Cardiovascular: Denies: Chest Pain, Edema, Lightheadedness Gastrointestinal: Denies: Abdominal Pain, Nausea, Vomiting Genitourinary: Reports: No Symptoms Musculoskeletal: Reports: No Symptoms Skin: Reports: No Symptoms Neurological: Reports: No Symptoms - Patient Data Vitals - Most Recent: Last Vital Signs Temp 98.5 F 07/14/19 11:29 Pulse 74 07/14/19 11:29 Resp 18 07/14/19 11:29 BP 124/70 07/14/19 11:29 Pulse Ox 100 07/14/19 11:29 Weight - Most Recent: 148 lb 6.4 oz I&O - Last 24 hours: Intake & Output 07/14/19 07/14/19 07/14/19 06:59 14:59 22:59 Intake Total 1500 Output Total 1400 Balance 100 Lab Results - Last 24 hrs: Laboratory Results - last 24 hr 07/14/19 07/14/19 Range/Units 06:50 06:50 WBC 6.4 (5.0-10.0) 10^3/uL RBC 4.45 (4.00-5.50) 10^6/uL Hgb 13.4 (12.0-16.0) g/dL Hct 41.4 (37.0-47.0) % MCV 93.0 (82.0-94.0) fL MCH 30.1 (27.0-32.0) pg MCHC 32.4 L (33.0-38.0) g/dL RDW Coeff of [place] 13.2 (11.0-15.0) % Plt Count 234 (150-400) 10^3/uL Neut % (Auto) 60.7 (35-85) % Lymph % (Auto) 31.5 (10-55) % [place] % (Auto) 6.1 (0-16) % Eos % (Auto) 1.4 (0-5) % Baso % (Auto) 0.3 (0-3) % Neut # (Auto) 3.87 (1.80-7.00) 10^3/uL Lymph # (Auto) 2.01 (1.00-4.80) 10^3/uL [place] # (Auto) 0.39 (0.00-0.80) 10^3/uL Eos # (Auto) 0.09 (0.00-0.45) 10^3/uL Baso # (Auto) 0.02 10^3/uL Sodium 139 (136-145) mEq/L Potassium 4.1 (3.5-5.0) mEq/L Chloride 104 (98-106) mEq/L Carbon Dioxide 26 (21-32) mmol/L BUN 5 L D (7-18) mg/dL Creatinine 0.8 (0.6-1.0) mg/dL Est Cr Clr Drug Dosing 62.44 mL/min Estimated GFR (MDRD) > 60 (>=60) mL/min Glucose 183 H D (75-99) mg/dL Calcium 8.4 (8.4-10.1) mg/dL C-Reactive Protein 0.2 (0.2-0.8) mg/dL Med Orders - Current: Current Medications Discontinued Medications Acetaminophen (Tylenol) 650 mg PO Q6H PRN PRN Reason: Abdominal Pain Last Admin: 07/14/19 06:21 Dose: 650 mg Enoxaparin Sodium (Lovenox) 40 mg SUBCUT DAILY@2200 [facility] Last Admin: 07/13/19 21:14 Dose: Not Given Fentanyl (Sublimaze) 25 mcg IM ONETIME ONE Stop: 07/12/19 22:57 Last Admin: 07/12/19 23:04 Dose: Not Given Fentanyl (Sublimaze) 25 mcg IVPUSH ONETIME ONE Stop: 07/12/19 23:01 Last Admin: 07/12/19 23:04 Dose: 25 mcg Fentanyl (Sublimaze) 50 mcg IVPUSH ONETIME ONE Stop: 07/12/19 23:34 Last Admin: 07/12/19 23:37 Dose: 50 mcg Hydromorphone HCl (Dilaudid) 0.25 mg IVPUSH Q2H PRN PRN Reason: Pain (severe 7-10) Last Admin: 07/13/19 11:52 Dose: 0.25 mg Lactated Ringer's (Ringers, Lactated) 1,000 mls @ 125 mls/hr IV ASDIRECTED [facility] Last Admin: 07/14/19 00:11 Dose: 125 mls/hr Levofloxacin/Dextrose 500 mg/ (Premix) 100 mls @ 100 mls/hr IV Q24H [facility] Last Admin: 07/13/19 23:44 Dose: 100 mls/hr Iopamidol (Isovue-370 (76%)) 100 ml IVPUSH ONETIME ONE Stop: 07/12/19 23:12 Last Admin: 07/12/19 23:27 Dose: 100 ml Ondansetron HCl (Zofran) 8 mg IV Q4H PRN PRN Reason: Nausea/Vomiting Last Admin: 07/13/19 04:33 Dose: 8 mg Pantoprazole Sodium (Protonix Iv) 40 mg IVPUSH Q12H [facility] Last Admin: 07/14/19 11:24 Dose: 40 mg - Exam General: Reports: Alert, Oriented HEENT: Reports: Mucous Membr. Moist/[place] Neck: Reports: Supple Lungs: Reports: Clear to Auscultation, Normal Respiratory Effort Cardiovascular: Reports: Regular Rate, Regular Rhythm GI/Abdominal Exam: Normal Bowel Sounds, Soft, Non-Tender Extremities: Normal Inspection, No Pedal Edema Skin: Reports: Warm, Dry Neurological: Reports: No New Focal Deficit
== END 2019-07-14 13:24 | disposition home or self-care (01) | DRG 249 ==
LOC: CC.ED 22:34 → UNDOADMIN 23:30 → CC.MS 23:30
PROVIDERS: ADMIT Physician Assistant Medical; ATTEND Family Medicine
DX: K52.9 Noninfective gastroenteritis and colitis, unspecified (principal); E11.9 Type 2 diabetes mellitus without complications; Z91.041 Radiographic dye allergy status; Z88.8 Allergy status to other drugs, medicaments and biological substances; Z90.49 Acquired absence of other specified parts of digestive tract; Z88.0 Allergy status to penicillin; Z90.89 Acquired absence of other organs; Z98.51 Tubal ligation status
CPT/HCPCS: 36415; 74177; 80048; 80053; 81001; 85025; 86140; 96374; 96376; 99285-25; A9270-GY; C9113; J1170; J1956; J2405; J3010; J7120; Q9967

== ENCOUNTER → 2020-09-15 | Day surgery (SDC) | payer BC ==
[~2020-09-15] MED LIST changes: -Acetaminophen/HYDROcodone 325-5 MG Tab PO ONE; +Ketamine 200 MG/20 ML MDV ONE; +Lactated Ringers 1,000 ML IV SCH; -Ondansetron 4 MG Tab.DIS PO ONE; +Propofol 200 MG/20 ML SDV ONE; +fentaNYL 100 MCG/2 ML SDV ONE
[2020-09-15 08:43] VITALS: BP 135/81; PULSE 53
--- NOTE | 2020-09-15 10:14 | OR ---
DATE OF OPERATION: 09/15/2020 PREOPERATIVE DIAGNOSIS: LEFT LOWER QUADRANT PAIN. POSTOPERATIVE DIAGNOSIS: LEFT LOWER QUADRANT PAIN. SURGEON: Michael Gore MD PROCEDURE: DIAGNOSTIC COLONOSCOPY WITH BIOPSIES X3 AND FORCEPS POLYP REMOVAL X1. ANESTHESIA: MAC. COMPLICATIONS: None. SPECIMEN: 1. Small hyperplastic polyp, rectal vault. 2. Random biopsies of the colon x2. 3. Sigmoid biopsy x1. FINDINGS: 1. Full-length diagnostic colonoscopy. 2. Diffuse and full-length melanosis coli. 3. Sigmoid diverticulosis, mild. 4. Possible active colitis, focal, sigmoid colon. 5. Small hyperplastic polyp, approximately 2 mm, rectal vault. RECOMMENDATIONS: Close followup with Dione Weber for pathology reports. The patient should be hypervigilant on preventing her constipation with daily bowel regimen pending polyp report. Recommend a followup colonoscopy in 5 years. INDICATIONS: The patient has apparently been having some ongoing issues with left lower quadrant pain. She has had an ultrasound of her pelvis along with a CT scan, and Dione Weber sent her for a diagnostic scope. DESCRIPTION OF PROCEDURE: The patient was prepped and draped and placed in the left lateral decubitus position. A lubricated Olympus colonoscope was inserted and easily advanced to the cecum. Direct visualization of the ileocecal valve and appendiceal orifice was accomplished. The bowel prep was excellent. Upon withdrawal, the patient had diffuse melanosis coli from the rectal vault all the way to the cecal pouch. Biopsies at the cecum and hepatic flexure were taken as the most media sales representative areas. In the right and transverse colon, no other polyps, masses, ulceration, or bleeding sites were seen. The patient did have mild diverticular disease in the sigmoid area. There was one focal area that looked like there might have been a little peridiverticular inflammation/colitis. We did do a biopsy of that, but no gross inflammatory changes were seen. No other polyps, masses, ulceration, or bleeding sites were noticed. The rectal vault had one small 2 mm sessile polyp, which was removed in its entirety with a forceps. Retroflexion showed no perianal lesions. Air was suctioned. The scope was removed without complication. CHANG/SUSIE /[id number]
== END ==
LOC: CC.SDS 06:53
PROVIDERS: ATTEND Family Medicine
DX: K62.1 Rectal polyp (principal); K57.30 Diverticulosis of large intestine without perforation or abscess without bleeding; K63.89 Other specified diseases of intestine; N85.2 Hypertrophy of uterus; K59.00 Constipation, unspecified; Z86.16 Personal history of COVID-19; Z88.0 Allergy status to penicillin; Z88.8 Allergy status to other drugs, medicaments and biological substances; Z79.82 Long term (current) use of aspirin; Z79.899 Other long term (current) drug therapy; Z79.84 Long term (current) use of oral hypoglycemic drugs
CPT/HCPCS: 00811; J2704; J3010; J7120

== ENCOUNTER 2021-09-11 11:30 | Emergency (ER) | payer BC ==
[2021-09-11 11:46] VITALS: BP 139/97; PULSE 91
[2021-09-11] MEDS: Ketorolac 30 MG/ML SDV IM ONE (12:09)
== END 2021-09-11 13:50 | disposition home or self-care (01) ==
LOC: CC.ED 11:30
DX: R07.81 Pleurodynia (principal); M54.6 Pain in thoracic spine; E78.00 Pure hypercholesterolemia, unspecified; I10 Essential (primary) hypertension; E11.9 Type 2 diabetes mellitus without complications; Z88.8 Allergy status to other drugs, medicaments and biological substances; Z88.0 Allergy status to penicillin; Z79.82 Long term (current) use of aspirin; Z79.899 Other long term (current) drug therapy
CPT/HCPCS: 71250; 96372; 99283-25; 99284; J1885